=== PATIENT | female | born 1950 | race Caucasian/White ===

== ENCOUNTER 2016-10-06 10:14 | Day surgery (SDC) | payer BC ==
[~2016-10-06 10:14] MED LIST: ACTOS45 MG; ANASTROZOLE1 M1 PO; ASPIRIN EC81 MG PO; CIPRO250 MG PO; GLUCOTROL10 MG; HUMULIN 70100 UNIT/2 SC; HYDROCHLOROTHIA25 M1 PO; HYDROCHLOROTHIA25 MG PO; HYDROCODON-ACE1 EA16 PO; LANTUS SOLOSTAR3 ML SQ; LEVOTHYROXINE50 MC3 PO; LIPITOR40 M1 PO; LIPITOR40 MG PO; LOPRESSOR25 MG/TA1 PO; METFORMIN HCL500 M3 PO; METOPROLOL TART25 M1 PO; NITROSTAT0.3 M1 SL; NORVASC5 M2 PO; PLAVIX75 M1 PO; PRILOSEC OTC20 M1 PO; PRINIVIL20 M1 PO; RELION; RELION SQ; VITAMIN D
== END 2016-10-07 11:42 ==
LOC: SHSB 10:14 → ORE 12:40 → PACU 15:14 → 5EB 17:05
PROC: 0PSG04Z Reposition Left Humeral Shaft with Internal Fixation Device, Open Approach (ICD-10-PCS; principal; 2016-10-06)
DX: S42.332A Displaced oblique fracture of shaft of humerus, left arm, initial encounter for closed fracture (principal); F41.9 Anxiety disorder, unspecified; F32.9 Major depressive disorder, single episode, unspecified; K21.9 Gastro-esophageal reflux disease without esophagitis; E11.22 Type 2 diabetes mellitus with diabetic chronic kidney disease; I13.0 Hypertensive heart and chronic kidney disease with heart failure and stage 1 through stage 4 chronic kidney disease, or unspecified chronic kidney disease; I50.30 Unspecified diastolic (congestive) heart failure; N18.1 Chronic kidney disease, stage 1; E11.40 Type 2 diabetes mellitus with diabetic neuropathy, unspecified; E03.9 Hypothyroidism, unspecified; I25.10 Atherosclerotic heart disease of native coronary artery without angina pectoris; G47.33 Obstructive sleep apnea (adult) (pediatric); Z87.891 Personal history of nicotine dependence; Z95.2 Presence of prosthetic heart valve; Z79.82 Long term (current) use of aspirin; Z79.899 Other long term (current) drug therapy; W01.0XXA Fall on same level from slipping, tripping and stumbling without subsequent striking against object, initial encounter; Z98.890 Other specified postprocedural states
CPT/HCPCS: C1713; C9290; J0690; J1815; J1885; J2250; J2270; J2405; J2550